=== PATIENT | female | born 1985 | race Caucasian/White ===

== ENCOUNTER 2019-06-17 20:09 | Emergency (ER) | payer BC ==
[2019-06-17 20:21] VITALS: BP 140/93; PULSE 91
--- NOTE | 2019-06-17 21:16 | EDM.PDOC ---
ED HPI GENERAL MEDICAL PROBLEM - General Chief Complaint: Abdominal Pain Stated Complaint: flank and abdominal pain Time Seen by Provider: 06/17/19 20:51 Source of Information: Reports: Patient History Limitations: Reports: No Limitations - History of Present Illness INITIAL COMMENTS - FREE TEXT/NARRATIVE: Patient is a 34-year-old female who presents with complaints of right flank and right lower quadrant abdominal pain. She states the pain initially started out in her right lower back approximately 1 week ago. Over the last couple days it has progressed into right lower quadrant abdominal pain. She also complains of some pain with urination and blood in her urine. She states that she went to the walk-in clinic this Saturday and they did a urinalysis and that it was negative for infection and she states that they did not see blood in the urine either. She was told to come to the ER if her symptoms should worsen. She has had some nausea and vomiting with this. Initially she had the symptoms on Saturday and the nausea and vomiting resolved until today. She has had 3 episodes of emesis today as well as some intermittent diarrhea. She describes the pain in her right lower quadrant as a dull constant ache. She does still have her appendix. Denies a history of kidney stones. Denies fever or chills. Right Lower Abdomen Pain Score (Numeric/FACES): 7 - Related Data Allergies Allergy/AdvReac Type Severity Reaction Status Date / Time Penicillins Allergy Cannot Verified 06/17/19 20:21 Remember Home Meds: Home Meds L.acidoph,Paracasei, B.lactis [Probiotic] 1 each PO DAILY 06/17/19 [History] Multivitamin [Daily Multiple Vitamin] 1 each PO DAILY 06/17/19 [History] Past Medical History HEENT History: Reports: Impaired Vision Cardiovascular History: Reports: None Respiratory History: Reports: None Gastrointestinal History: Reports: None MANAGER HIGHW[address] History: Reports: Musculoskeletal History: Reports: None Neurological History: Reports: None Psychiatric History: Reports: None Endocrine/Metabolic History: Reports: Obesity/BMI 30+ Hematologic History: Reports: None Immunologic History: Reports: None Oncologic (Cancer) History: Reports: None Dermatologic History: Reports: None - Infectious Disease History Infectious Disease History: Reports: None - Past Surgical History Female Surgical History: Reports: Section Social & Family History - Tobacco Use Smoking Status *Q: Current Every Day Smoker Years of Tobacco use: 7 Packs/Tins Daily: 0.2 - Caffeine Use Caffeine Use: Reports: Coffee - Recreational Drug Use Recreational Drug Use: No ED ROS GENERAL - Review of Systems Review Of Systems: Comprehensive ROS is negative, except as noted in HPI. ED EXAM, GI/ABD - Physical Exam Exam: See Below Exam Limited By: No Limitations General Appearance: Alert, WD/WN, No Apparent Distress Respiratory/Chest: No Respiratory Distress, Lungs Clear, Normal Breath Sounds, No Accessory Muscle Use, Chest Non-Tender Cardiovascular: Normal Peripheral Pulses, Regular Rate, Rhythm, No Edema, No Gallop, No JVD, No Murmur, No Rub GI/Abdominal Exam: Normal Bowel Sounds, Soft, No Organomegaly, No Distention, No Abnormal Bruit, No Mass, Pelvis Stable, Tender (Right upper and right lower quadrants) Back Exam: Normal Inspection, CVA Tenderness (R) Neurological: Alert, Oriented, CN II-XII Intact, Normal Cognition, Normal Gait, Normal Reflexes, No Motor/Sensory Deficits Psychiatric: Normal Affect, Normal Mood Skin Exam: Warm, Dry, Intact, Normal Color, No Rash Course - Vital Signs Last Recorded V/S: Last Vital Signs Temp 96.8 F 06/17/19 20:17 Pulse 91 06/17/19 20:17 Resp 16 06/17/19 20:17 BP 140/93 H 06/17/19 20:17 Pulse Ox 100 06/17/19 20:17 - Orders/Labs/Meds Orders: Active Orders 24 hr Category Date Time Status Peripheral IV Care [RC] . DIRECTED Care 06/17/19 21:37 Active Abdomen Pelvis w Cont [CT] Stat Exams 06/17/19 21:37 Taken Sodium Chloride 0.9% [Normal Saline] 1,000 ml Med 06/17/19 21:45 Active IV ASDIRECTED Sodium Chloride 0.9% [Saline Flush] Med 06/17/19 21:37 Active 10 ml FLUSH ASDIRECTED PRN Peripheral IV Insertion Adult [OM.PC] Stat Oth 06/17/19 21:37 Ordered Medication Orders Sodium Chloride (Normal Saline) 1,000 mls @ 999 mls/hr IV ASDIRECTED SARI Last Admin: 06/17/19 21:50 Dose: 999 mls/hr Sodium Chloride (Saline Flush) 10 ml FLUSH ASDIRECTED PRN PRN Reason: Keep Vein Open Last Admin: 06/17/19 21:50 Dose: 10 ml Labs: Laboratory Tests 06/17/19 06/17/19 06/17/19 Range/Units 21:15 21:15 21:45 WBC 11.18 H (3.98-10.04) K/mm3 RBC 4.46 (3.98-5.22) M/mm3 Hgb 15.0 (11.2-15.7) gm/dl Hct 44.3 (34.1-44.9) % MCV 99.3 H (79.4-94.8) fl MCH 33.6 H (25.6-32.2) pg MCHC 33.9 (32.2-35.5) g/dl RDW Std Deviation 45.6 (36.4-46.3) fL Plt Count 250 (182-369) K/mm3 MPV 8.8 L (9.4-12.3) fl Neut % (Auto) 65.3 (34.0-71.1) % Lymph % (Auto) 24.0 (19.3-51.7) % [place] % (Auto) 8.3 (4.7-12.5) % Eos % (Auto) 2.0 (0.7-5.8) Baso % (Auto) 0.2 (0.1-1.2) % Neut # (Auto) 7.31 H (1.56-6.13) K/mm3 Lymph # (Auto) 2.68 (1.18-3.74) K/mm3 [place] # (Auto) 0.93 H (0.24-0.36) K/mm3 Eos # (Auto) 0.22 (0.04-0.36) K/mm3 Baso # (Auto) 0.02 (0.01-0.08) K/mm3 Manual Slide Review Normal smear Sodium (136-145) mEq/L Potassium (3.5-5.1) mEq/L Chloride (98-107) mEq/L Carbon Dioxide (21-32) mEq/L Anion Gap (5-15) BUN (7-18) mg/dL Creatinine (0.55-1.02) mg/dL Est Cr Clr Drug Dosing mL/min Estimated GFR (MDRD) (>60) mL/min BUN/Creatinine Ratio (14-18) Glucose (74-106) mg/dL Calcium (8.5-10.1) mg/dL Total Bilirubin (0.2-1.0) mg/dL AST (15-37) U/L ALT (14-59) U/L Alkaline Phosphatase (46-116) U/L C-Reactive Protein (<1.0) mg/dL Total Protein (6.4-8.2) g/dl Albumin (3.4-5.0) g/dl Globulin gm/dL Albumin/Globulin Ratio (1-2) Urine Color Light yellow (Yellow) Urine Appearance Clear (Clear) Urine pH 7.0 (5.0-8.0) Ur Specific [place] 1.010 (1.005-1.030) Urine Protein Negative (Negative) Urine Glucose (UA) Negative (Negative) Urine Ketones Negative (Negative) Urine Occult Blood Negative (Negative) Urine Nitrite Negative (Negative) Urine Bilirubin Negative (Negative) Urine Urobilinogen 0.2 (0.2-1.0) Ur Leukocyte Esterase Negative (Negative) Urine RBC Not seen (0-5) /hpf Urine WBC 0-5 (0-5) /hpf Ur Squamous Epith Cells Not seen (0-5) /hpf Urine Bacteria Not seen (FEW) /hpf Urine Mucus Not seen (FEW) /hpf Urine HCG, Qual Negative (NEGATIVE) 06/17/19 Range/Units 21:45 WBC (3.98-10.04) K/mm3 RBC (3.98-5.22) M/mm3 Hgb (11.2-15.7) gm/dl Hct (34.1-44.9) % MCV (79.4-94.8) fl MCH (25.6-32.2) pg MCHC (32.2-35.5) g/dl RDW Std Deviation (36.4-46.3) fL Plt Count (182-369) K/mm3 MPV (9.4-12.3) fl Neut % (Auto) (34.0-71.1) % Lymph % (Auto) (19.3-51.7) % [place] % (Auto) (4.7-12.5) % Eos % (Auto) (0.7-5.8) Baso % (Auto) (0.1-1.2) % Neut # (Auto) (1.56-6.13) K/mm3 Lymph # (Auto) (1.18-3.74) K/mm3 [place] # (Auto) (0.24-0.36) K/mm3 Eos # (Auto) (0.04-0.36) K/mm3 Baso # (Auto) (0.01-0.08) K/mm3 Manual Slide Review Sodium 141 (136-145) mEq/L Potassium 3.7 (3.5-5.1) mEq/L Chloride 104 (98-107) mEq/L Carbon Dioxide 27 (21-32) mEq/L Anion Gap 13.7 (5-15) BUN 7 (7-18) mg/dL Creatinine 0.7 (0.55-1.02) mg/dL Est Cr Clr Drug Dosing 97.79 mL/min Estimated GFR (MDRD) > 60 (>60) mL/min BUN/Creatinine Ratio 10.0 L (14-18) Glucose 90 (74-106) mg/dL Calcium 8.7 (8.5-10.1) mg/dL Total Bilirubin 0.4 (0.2-1.0) mg/dL AST 18 (15-37) U/L ALT 27 (14-59) U/L Alkaline Phosphatase 72 (46-116) U/L C-Reactive Protein 0.2 (<1.0) mg/dL Total Protein 7.6 (6.4-8.2) g/dl Albumin 3.7 (3.4-5.0) g/dl Globulin 3.9 gm/dL Albumin/Globulin Ratio 1.0 (1-2) Urine Color (Yellow) Urine Appearance (Clear) Urine pH (5.0-8.0) Ur Specific [place] (1.005-1.030) Urine Protein (Negative) Urine Glucose (UA) (Negative) Urine Ketones (Negative) Urine Occult Blood (Negative) Urine Nitrite (Negative) Urine Bilirubin (Negative) Urine Urobilinogen (0.2-1.0) Ur Leukocyte Esterase (Negative) Urine RBC (0-5) /hpf Urine WBC (0-5) /hpf Ur Squamous Epith Cells (0-5) /hpf Urine Bacteria (FEW) /hpf Urine Mucus (FEW) /hpf Urine HCG, Qual (NEGATIVE) Meds: Medications Generic Name Dose Route Start Last Admin Trade Name Freq PRN Reason Stop Dose Admin Sodium Chloride 1,000 mls @ 999 mls/hr 06/17/19 21:45 06/17/19 21:50 Normal Saline IV 999 mls/hr ASDIRECTED SARI Administration Sodium Chloride 10 ml 06/17/19 21:37 06/17/19 21:50 Saline Flush FLUSH 10 ml ASDIRECTED PRN Administration Keep Vein Open - Re-Assessments/Exams Free Text/Narrative Re-Assessment/Exam: Urinalysis was negative for any blood. Based on this, kidney stones are unlikely. I will proceed with a work-up including a CBC, CMP, CRP, CT abdomen pelvis with contrast. Patient denies need for nausea medications or pain meds at this time. 06/17/19 23:17 CT of abdomen was negative for any acute abnormalities. On review there is a significant amount of stool throughout the ascending transverse and descending colons. This may be the cause of her going pain. She has already received 2 bottles of oral contrast which may in itself loosen her stool, however I will also recommend that she strip picker a bottle of magnesium citrate and drink that to attempt to cleanse a stool from her colon. Discharge instructions as noted. Departure - Departure Time of Disposition: 23:27 Disposition: Home, Self-Care 01 Condition: Fair Clinical Impression: Abdominal pain Qualifiers: Abdominal location: unspecified location Qualified Code(s): R10.9 - Unspecified abdominal pain - Discharge Information *PRESCRIPTION DRUG MONITORING PROGRAM REVIEWED*: No *COPY OF PRESCRIPTION DRUG MONITORING REPORT IN PATIENT MICHAEL: No Instructions: Abdominal Pain, Adult, [id number] Referrals: Kalyani Torres NP [Primary Care Provider] - Forms: ED Department Discharge Additional Instructions: Seen in the emergency department tonight for complaints of ongoing right-sided abdominal pain. Your work-up in the ER included blood work, urinalysis, and a CT of your abdomen and pelvis. You work-up was normal with the exception of fairly significant amount of stool through your a sending transverse and descending colon. As we discussed, you did have 2 bottles of oral contrast which in itself may be enough to get your bowels moving. You may also strip picker a bottle of magnesium citrate and drink that to further help your bowels move. If you should fail to improve after having a significant bowel movement or you develop any new or worsening symptoms of concern, please not hesitate to return to the emergency department or follow-up with your primary care provider. Sepsis Event Note - Evaluation Sepsis Screening Result: No Definite Risk - Focused Exam Vital Signs: Vital Signs Temp Pulse Resp BP Pulse Ox 06/17/19 20:17 96.8 F 91 16 140/93 H 100 Date Exam was Performed: 06/17/19 Time Exam was Performed: 23:38 - My Orders Last 24 Hours: My Active Orders 06/17/19 21:37 Peripheral IV Care [RC] . DIRECTED Abdomen Pelvis w Cont [CT] Stat Sodium Chloride 0.9% [Saline Flush] 10 ml FLUSH ASDIRECTED PRN Peripheral IV Insertion Adult [OM.PC] Stat 06/17/19 21:45 Sodium Chloride 0.9% [Normal Saline] 1,000 ml IV ASDIRECTED - Assessment/Plan Last 24 Hours: My Active Orders 06/17/19 21:37 Peripheral IV Care [RC] . DIRECTED Abdomen Pelvis w Cont [CT] Stat Sodium Chloride 0.9% [Saline Flush] 10 ml FLUSH ASDIRECTED PRN Peripheral IV Insertion Adult [OM.PC] Stat 06/17/19 21:45 Sodium Chloride 0.9% [Normal Saline] 1,000 ml IV ASDIRECTED
[2019-06-17] MEDS ORDERED: Sodium Chloride 0.9% 10 ML Syringe FLUSH PRN (21:37)
[2019-06-17] MEDS ORDERED: Sodium Chloride 0.9% 1,000 ML IV SCH (21:45)
--- NOTE | 2019-06-18 07:16 | CT ---
CT abdomen and pelvis Technique: Multiple axial sections were obtained from above the dome of the diaphragm inferiorly through the pubic symphysis. Intravenous and oral contrast was utilized. Delayed images were obtained through the pelvis. Comparison: No prior CT abdomen or pelvis exam, previous abdominal x-ray of 07/20/15. Findings: Visualized lung bases show nothing acute. Liver contains no focal parenchymal abnormality. Small amount of contrast seen within the distal esophagus compatible with reflux. Spleen appears within normal limits. Gallbladder contains no calcified gallstones. Adrenal glands show no nodule. Kidneys show symmetric contrast enhancement without hydronephrosis or mass. Pancreas appears within normal limits. Aorta shows no aneurysm. No retroperitoneal adenopathy or mesenteric abnormalities are seen. No pelvic mass or adenopathy is identified. Appendix felt to be visualized. Fat-containing umbilical hernia is noted. Delayed images show two right-sided ureters which join prior to the UVJ. Single left ureter is seen. Contrast noted within the distal ureters with no evidence of ureteral obstruction. Bone window settings were reviewed which show disc space narrowing and endplate spurring at T11-T12 and T12-L1. No acute osseous finding is seen. Impression: 1. Findings as described above. 2. Nothing acute is appreciated. Diagnostic code #2 This report was dictated in [place] Standard Time I agree with preliminary report from [facility], finalized on 06/18/19, 12:15 AM Central Time
== END 2019-06-17 23:36 | disposition home or self-care (01) ==
LOC: JD.ED 20:09
DX: R10.31 Right lower quadrant pain (principal); F17.210 Nicotine dependence, cigarettes, uncomplicated; Z88.0 Allergy status to penicillin
CPT/HCPCS: 36415; 74177; 80053; 81001; 81025; 85025; 86140; 96360; 99284; J7030

== ENCOUNTER 2021-01-23 13:12 | Emergency (ER) | payer BC ==
[2021-01-23 14:20] VITALS: BP 137/78
[2021-01-23 14:23] VITALS: PULSE 111
--- NOTE | 2021-01-23 15:05 | EDM.PDOC ---
ED HPI GENERAL MEDICAL PROBLEM - General Chief Complaint: Chest Pain Stated Complaint: DIZZY/ CHEST PAIN Time Seen by Provider: 01/23/21 14:12 Source of Information: Reports: Patient History Limitations: Reports: No Limitations - History of Present Illness INITIAL COMMENTS - FREE TEXT/NARRATIVE: 35-year-old female presents the emergency department with complaints of intermittent chest pain and dizziness for the past 3 days. Patient states that chest pain is described as a pressure in the middle of her chest that comes and goes at rest. She also states she has had intermittent dizziness not associated with the chest pressure. She states when she develops the dizziness she also has nausea and diaphoresis. She denies any recent fever, chills, vomiting, diarrhea or abdominal pain. She denies cough or shortness of breath associated with this. She denies any urinary symptoms. She states she is otherwise healthy and does not take any prescription medications. Primary care provider is Kalyani Torres. She states she does smoke between 1/2 pack and a pack cigarettes daily for the past 12 years. She drinks 2 energy drinks daily. - Related Data Allergies Allergy/AdvReac Type Severity Reaction Status Date / Time Penicillins Allergy Cannot Verified 01/23/21 14:19 Remember Home Meds: Home Meds L.acidoph,Paracasei, B.lactis [Probiotic] 1 each PO DAILY 06/17/19 [History] Multivitamin [Daily Multiple Vitamin] 1 each PO DAILY 06/17/19 [History] Past Medical History HEENT History: Reports: Impaired Vision Cardiovascular History: Reports: None Respiratory History: Reports: None Gastrointestinal History: Reports: None LITIGATION [place] History: Reports: Musculoskeletal History: Reports: None Neurological History: Reports: None Psychiatric History: Reports: None Endocrine/Metabolic History: Reports: Obesity/BMI 30+ Hematologic History: Reports: None Immunologic History: Reports: None Oncologic (Cancer) History: Reports: None Dermatologic History: Reports: None - Infectious Disease History Infectious Disease History: Reports: None - Past Surgical History Female Surgical History: Reports: Section Social & Family History - Tobacco Use Tobacco Use Status *Q: Current Every Day Tobacco User Years of Tobacco use: 20 Packs/Tins Daily: 1 - Caffeine Use Caffeine Use: Reports: Coffee ED ROS GENERAL - Review of Systems Review Of Systems: Comprehensive ROS is negative, except as noted in HPI. ED EXAM, GENERAL - Physical Exam Exam: See Below Exam Limited By: No Limitations General Appearance: Alert, WD/WN, No Apparent Distress Ears: Normal External Exam, Hearing Grossly Normal Nose: Normal Inspection Throat/Mouth: Normal Inspection, Normal Lips, Normal Voice, No Airway Compromise Head: Atraumatic, Normocephalic Neck: Normal Inspection, Supple Respiratory/Chest: No Respiratory Distress, Lungs Clear, Normal Breath Sounds, No Accessory Muscle Use, Chest Non-Tender Cardiovascular: Normal Peripheral Pulses, Regular Rate, Rhythm, No Edema, No Murmur GI/Abdominal: Normal Bowel Sounds, Soft, Non-Tender, No Distention (Female) Exam: Deferred Rectal (Female) Exam: Deferred Back Exam: Normal Inspection Extremities: Normal Inspection Neurological: Alert, Oriented, Normal Cognition Psychiatric: Normal Affect, Normal Mood Skin Exam: Warm, Dry, Intact, Normal Color, No Rash Lymphatic: No Adenopathy Course - Vital Signs Text/Narrative:: As stated above, patient presents with intermittent chest discomfort and dizziness not associated with the chest discomfort. Sickle cell max is essentially unremarkable. She is hemodynamically stable. Will obtain a chest x-ray, EKG, Covid swab, and labs to include a CBC, CMP, C-reactive protein, D-d gabe, magnesium level, TSH and a troponin level. Last Recorded V/S: Last Vital Signs Temp 97.8 F 01/23/21 14:20 Pulse 111 H 01/23/21 14:20 Resp 18 01/23/21 14:20 BP 137/78 01/23/21 14:20 Pulse Ox 100 01/23/21 14:20 - Orders/Labs/Meds Orders: Active Orders 24 hr Category Date Time Status EKG Documentation Completion [RC] STAT Care 01/23/21 14:33 Active UA RFX ANDREY AND CULT IF INDIC [URIN] Stat Lab 01/23/21 14:33 Ordered Labs: Laboratory Tests 01/23/21 01/23/21 01/23/21 Range/Units 14:46 14:46 14:46 WBC 8.80 (3.98-10.04) K/mm3 RBC 4.65 (3.98-5.22) M/mm3 Hgb 15.1 (11.2-15.7) gm/dl Hct 45.1 H (34.1-44.9) % MCV 97.0 H (79.4-94.8) fl MCH 32.5 H (25.6-32.2) pg MCHC 33.5 (32.2-35.5) g/dl RDW Std Deviation 44.2 (36.4-46.3) fL Plt Count 280 (182-369) K/mm3 MPV 8.9 L (9.4-12.3) fl Neut % (Auto) 59.2 (34.0-71.1) % Lymph % (Auto) 29.4 (19.3-51.7) % [place] % (Auto) 9.1 (4.7-12.5) % Eos % (Auto) 1.9 (0.7-5.8) Baso % (Auto) 0.2 (0.1-1.2) % Neut # (Auto) 5.20 (1.56-6.13) K/mm3 Lymph # (Auto) 2.59 (1.18-3.74) K/mm3 [place] # (Auto) 0.80 H (0.24-0.36) K/mm3 Eos # (Auto) 0.17 (0.04-0.36) K/mm3 Baso # (Auto) 0.02 (0.01-0.08) K/mm3 D-Dimer, Quantitative 0.25 (0.19-0.50) mg/L Sodium 140 (136-145) mEq/L Potassium 3.6 (3.5-5.1) mEq/L Chloride 106 (98-107) mEq/L Carbon Dioxide 24 (21-32) mEq/L Anion Gap 13.6 (5-15) BUN 8 (7-18) mg/dL Creatinine 0.7 (0.55-1.02) mg/dL Est Cr Clr Drug Dosing TNP Estimated GFR (MDRD) > 60 (>60) mL/min BUN/Creatinine Ratio 11.4 L (14-18) Glucose 92 (70-99) mg/dL Calcium 8.7 (8.5-10.1) mg/dL Magnesium 2.1 (1.8-2.4) mg/dL Total Bilirubin 0.6 (0.2-1.0) mg/dL AST 16 (15-37) U/L ALT 31 (14-59) U/L Alkaline Phosphatase 71 (46-116) U/L Troponin I < 0.017 (0.00-0.056) ng/mL C-Reactive Protein <0.2 (<1.0) mg/dL Total Protein 7.4 (6.4-8.2) g/dl Albumin 3.8 (3.4-5.0) g/dl Globulin 3.6 gm/dL Albumin/Globulin Ratio 1.1 (1-2) TSH 3rd Generation 2.465 (0.358-3.74) uIU/mL SARS-CoV-2 RNA (DELMER) (NEGATIVE) 01/23/21 Range/Units 14:50 WBC (3.98-10.04) K/mm3 RBC (3.98-5.22) M/mm3 Hgb (11.2-15.7) gm/dl Hct (34.1-44.9) % MCV (79.4-94.8) fl MCH (25.6-32.2) pg MCHC (32.2-35.5) g/dl RDW Std Deviation (36.4-46.3) fL Plt Count (182-369) K/mm3 MPV (9.4-12.3) fl Neut % (Auto) (34.0-71.1) % Lymph % (Auto) (19.3-51.7) % [place] % (Auto) (4.7-12.5) % Eos % (Auto) (0.7-5.8) Baso % (Auto) (0.1-1.2) % Neut # (Auto) (1.56-6.13) K/mm3 Lymph # (Auto) (1.18-3.74) K/mm3 [place] # (Auto) (0.24-0.36) K/mm3 Eos # (Auto) (0.04-0.36) K/mm3 Baso # (Auto) (0.01-0.08) K/mm3 D-Dimer, Quantitative (0.19-0.50) mg/L Sodium (136-145) mEq/L Potassium (3.5-5.1) mEq/L Chloride (98-107) mEq/L Carbon Dioxide (21-32) mEq/L Anion Gap (5-15) BUN (7-18) mg/dL Creatinine (0.55-1.02) mg/dL Est Cr Clr Drug Dosing Estimated GFR (MDRD) (>60) mL/min BUN/Creatinine Ratio (14-18) Glucose (70-99) mg/dL Calcium (8.5-10.1) mg/dL Magnesium (1.8-2.4) mg/dL Total Bilirubin (0.2-1.0) mg/dL AST (15-37) U/L ALT (14-59) U/L Alkaline Phosphatase (46-116) U/L Troponin I (0.00-0.056) ng/mL C-Reactive Protein (<1.0) mg/dL Total Protein (6.4-8.2) g/dl Albumin (3.4-5.0) g/dl Globulin gm/dL Albumin/Globulin Ratio (1-2) TSH 3rd Generation (0.358-3.74) uIU/mL SARS-CoV-2 RNA (DELMER) Negative (NEGATIVE) - Re-Assessments/Exams Free Text/Narrative Re-Assessment/Exam: 01/23/21 15:07 Nothing acute is appreciated on portable view of the chest. 01/23/21 16:01 Radiologist impression portable view of the chest: 1. Nothing acute is seen on portable chest x-ray. 01/23/21 16:02 Hematology reveals a WBC of 8.80, hemoglobin 15.1, hematocrit 45.1, platelet count 280 D-dimer 0.25 Chemistry is unremarkable, troponin less than 0.017, C-reactive protein less than 0.2, TSH 2.465 Patient is Covid negative Patient will be discharged home with recommendations that she follow-up with her primary care provider. Departure - Departure Time of Disposition: 16:03 Disposition: Home, Self-Care 01 Condition: Good Clinical Impression: Atypical chest pain Instructions: Nonspecific Chest Pain, Adult, [id number] Referrals: Kalyani Torres NP [Primary Care Provider] - Forms: ED Department Discharge Additional Instructions: You were seen in the emergency department today with complaints of intermittent chest discomfort and dizziness. Studies were completed which included an EKG, chest x-ray and lab studies. These were all unremarkable. You are not having a heart attack. Your thyroid level is within normal limits. Would strongly recommend limiting your caffeine intake to 1 cup of coffee daily and to stop drinking any animal energy drinks. Drink more water and attempt to quit smoking. The caffeine and nicotine do increase your heart rate which likely could be the cause of all of this. Recommend that you follow-up with your primary care provider in about a week for reevaluation. Should your condition worsen or change, do not hesitate returning to the emergency department. Sepsis Event Note (ED) - Evaluation Sepsis Screening Result: No Definite Risk - Focused Exam Vital Signs: Vital Signs Temp Pulse Resp BP Pulse Ox 01/23/21 14:20 97.8 F 111 H 18 137/78 100 01/23/21 14:17 97.8 F 106 H 18 137/78 100 - My Orders Last 24 Hours: My Active Orders 01/23/21 14:33 EKG Documentation Completion [RC] STAT UA RFX ANDREY AND CULT IF INDIC [URIN] Stat - Assessment/Plan Last 24 Hours: My Active Orders 01/23/21 14:33 EKG Documentation Completion [RC] STAT UA RFX ANDREY AND CULT IF INDIC [URIN] Stat
--- NOTE | 2021-01-23 15:54 | CR ---
Chest: Portable view of the chest was obtained. Comparison: No prior chest imaging is available. Heart size and mediastinum are normal. Lungs are clear with no acute parenchymal change. Bony structures show nothing acute. Impression: 1. Nothing acute is seen on portable chest x-ray. Diagnostic code #1
--- NOTE | 2021-01-23 21:52 | PCM.EKG ---
#1 Interpretation EKG Date: 01/23/21 Time: 14:12 Rhythm: NSR Rate (Beats/Min): 112 [place]: Normal P-Wave: Present QRS: Normal ST-T: Normal QT: Normal Comparison: NA - No Prior EKG EKG Interpretation Comments: Per Dr. Villa interpretation: Sinus tachycardia at 112 bpm; probable left atrial enlargement; borderline repolarization abnormality; baseline wander in leads II, 3, aVR, aVL, aVF, V3, V4, V6
== END 2021-01-23 16:17 | disposition home or self-care (01) ==
LOC: JD.ED 13:12
DX: R07.89 Other chest pain (principal); E66.9 Obesity, unspecified; F17.210 Nicotine dependence, cigarettes, uncomplicated; Z88.0 Allergy status to penicillin; Z20.822 Contact with and (suspected) exposure to COVID-19
CPT/HCPCS: 36415; 71045; 71045-26; 80053; 83735; 84443; 84484; 85025; 85379; 86140; 93005; 99285-25; U0002

== ENCOUNTER 2023-03-08 21:10 | Emergency (ER) | payer BC ==
[2023-03-08 21:48] VITALS: BP 148/92; PULSE 63
== END 2023-03-08 22:38 | disposition home or self-care (01) ==
LOC: JD.ED 21:10
DX: L76.82 Other postprocedural complications of skin and subcutaneous tissue (principal); E66.9 Obesity, unspecified; Z68.36 Body mass index [BMI] 36.0-36.9, adult; Z87.891 Personal history of nicotine dependence; Z88.0 Allergy status to penicillin
CPT/HCPCS: 99283